=== PATIENT | male | born 1970 | race African-American/Black ===

== ENCOUNTER 2018-02-09 16:07 | Inpatient (IN) ==
[2018-02-09] MEDS ORDERED: Aluminum/Magnesium/Simethacone Susp 30 ML UDC PO PRN (18:54)
[2018-02-09] MEDS ORDERED: Bisacodyl 10 MG Supp RECTAL PRN (18:54)
[2018-02-09] MEDS ORDERED: Benzonatate 100 MG Capsule PO PRN (18:57)
[2018-02-09] MEDS: QUEtiapine 100 MG Tablet PO SCH (20:55)
[2018-02-09] MEDS: Senna/Docusate Sodium 8.6/50 MG Tablet PO SCH (20:55)
[2018-02-09] MEDS: Metoprolol Tartrate 25 MG Tablet PO SCH (20:56)
[2018-02-10 07:38] LABS: Calcium 8.3 mg/dL (8.5-10.1); Carbon Dioxide 30.9 meq/L (21.0-32.0); Potassium 3.9 meq/L (3.5-5.1)
[2018-02-10 07:41] LABS: Chol/HDL Ratio 2.36 Ratio; HDL Cholesterol 53.8 mg/dL (40.0-60.0)
[2018-02-10] MEDS: Aspirin 325 MG Tablet PO SCH (09:00)
[2018-02-10] MEDS: Senna/Docusate Sodium 8.6/50 MG Tablet PO SCH ×2 (09:00→21:37)
[2018-02-10] MEDS: amLODIPine 10 MG Tablet PO SCH (09:00)
[2018-02-10] MEDS: Sertraline 50 MG Tablet PO SCH (09:00)
[2018-02-10] MEDS: Metoprolol Tartrate 25 MG Tablet PO SCH ×2 (09:00→21:24)
[2018-02-10 09:31] LABS: Hemoglobin A1c 5.7 % (4.3-6.0)
--- NOTE | 2018-02-10 14:15 | P.HPPSY ---
Provisional Diagnosis Admission Date: February 09, 2018 17:30 Patient was transferred to the medical floor due to elevated blood pressure and has returned. There are no changes in his mental status beyond some slight improvement in his management of his feelings about responding to his hallucinatory demands of his son to kill the internet security specialist who he alleges was responsible for his . While on the medical floor the patient did not receive his psychotropic medication. Competence Certification of Person's Competence To Provide Express and Informed Consent I have personally examined Denzel Grullon, a person being served at [facility] on, February 10, 2018 1353. Express and informed consent means consent voluntarily given in writing, by a competent person, after sufficient explanation and disclosure of the subject matter involved to enable the person to make a knowing and willful decision without any element of force, fraud, deceit, duress, or other form of constraint or coercion. This person is 18 years of age or older, is not now known to be incompetent to consent to treatment with a guardian advocate, and does not have a health care surrogate or proxy currently making medical treatment decisions. I have found this person to be one of the following: [] Competent to provide express and informed consent, as defined above, for voluntary admission to this facility and is competent to provide express and informed consent for treatment. He/she has the consistent capacity to make well reasoned, willful, and knowing decisions concerning his or her medical or mental health treatment. The person fully and consistently understands the purpose of the admission for examination/placement and is fully capable of personally exercising all rights assured [place] [] Incompetent to provide express and informed consent to voluntary admission, and this is incompetent to provide express and informed consent to treatment. The person must be transferred to involuntary status and a petition for a guardian advocate filed with the Circuit Court. [] Refusing to provide express and informed consent to voluntary admission but is competent to provide express and informed consent for treatment. The person must be discharged or transferred to involuntary status. Form shall be completed within 24 hours of a person's arrival at the receiving facility and filed in the clinical record of each person: 1. Admitted on a voluntary basis 2. Permitted to provide express and informed consent to his/her own treatment 3. Allowed to transfer from involuntary to voluntary status 4. Prior to permitting a person to consent to his or her own treatment after having been previously found incompetent to consent to treatment. History of Present Illness Capacity: Has capacity Chief Complaint: Auditory and visual command hallucinations of instructions from his son to kill the internet security specialist responsible for his . History of Present Illness: February 10, 2018 Patient was on the medical floor for part of the day. Changes in his history beyond the hypertensive crisis that occurred that led to his being transferred to medicine. - Inpatient Certification I certify that the inpatient services were ordered in accordance with Medicare regulations governing the order. This includes certification that hospital inpatient services are reasonable and necessary and in the case of services not specified as inpatient-only under 42 CFR 419.22(n), that they are appropriately provided as inpatient services in accordance to with the 2-midnight benchmark under 43 CFR 412.3(e) I certify that inpatient psychiatric hospital services are medically necessary. Evaluation and treatment and/or diagnostic testing are expected to improve the patient's condition. The patient needs on a daily basis, active treatment furnished directly by or requiring the supervision of inpatient psychiatric facility personnel. Estimated Total Length of Stay (Days): 7 Plans for Post Hospital Care: Home Review of Systems February 10, 2018 patient complains of right flank pain which has been present on and off before hospitalization. Straight leg raising sign is positive for sciatic pain with elevation. PMFSH - History History Provided By: Patient - Medical History Medical History: Medical History (Last Updated 02/08/18 @ 17:31 by Mary Brown MD) Drug abuse HTN (hypertension) - Surgical History Surgical History: Surgical History (Last Updated 02/08/18 @ 17:31 by Mary Brown MD) No history of previous surgery - Family History Family History: Family History Mother Stroke - Tobacco History Second Hand Smoke Exposure: No Tobacco Use In Past 30 Days: No Smoking Status: Current every day smoker Tobacco Type: Cigarettes - Alcohol History How Often Do You Have a Drink Containing Alcohol: 2 to 4 times a month - Substance Use History Substance History: No History of Abuse Medications and Allergies Active Medications: Active Medications Hydrocodone Bitart/Acetaminophen ([place] 7.5/325) 1 tab PO Q6H PRN PRN Reason: PAIN SCALE 6-10 OR SEVERE SOB Al Hydrox/Mg Hydrox/Simethicone (Mag-Al Plus Susp Liq) 30 ml PO Q6H PRN PRN Reason: DYSPEPSIA Al Hydroxide/Mg Hydroxide (Milk Of Magnesia Liq) 30 ml PO Q12H PRN PRN Reason: Mild Constipation Amlodipine Besylate (Norvasc) 10 mg PO DAILY [facility] Last Admin: 02/10/18 09:00 Dose: 10 mg Aspirin (Aspirin) 325 mg PO DAILY [facility] Last Admin: 02/10/18 09:00 Dose: 325 mg Benzonatate (Tessalon Perles) 100 mg PO Q8H PRN PRN Reason: COUGH Bisacodyl (Dulcolax Supp) 10 mg RECTAL DAILY PRN PRN Reason: SEVERE CONSITIPATION Hydroxyzine HCl (Atarax) 25 mg PO Q6H PRN PRN Reason: ANXIETY Last Admin: 02/09/18 20:55 Dose: 25 mg Lactulose (Lactulose Liq) 30 ml PO DAILY PRN PRN Reason: SEVERE CONSITIPATION Metoprolol Tartrate (Lopressor) 25 mg PO BID [facility] Last Admin: 02/10/18 09:00 Dose: 25 mg Quetiapine Fumarate (Seroquel) 100 mg PO [facility] Last Admin: 02/09/18 20:55 Dose: 100 mg Senna/Docusate Sodium (Danielle-Colace) 1 tab PO BID [facility] Last Admin: 02/10/18 09:00 Dose: 1 tab Sennosides (Senokot) 17.2 mg PO Q12H PRN PRN Reason: Moderate Constipation Sertraline HCl (Zoloft) 50 mg PO DAILY [facility] Last Admin: 02/10/18 09:00 Dose: 50 mg Allergies Allergy/AdvReac Type Severity Reaction Status Date / Time No Known Allergies Allergy Verified 02/05/18 08:58 Results - Labs CBC & Chem 7: 02/10/18 06:02 Labs: Laboratory Results - last 24 hr 02/10/18 02/10/18 06:02 06:02 Sodium 138 Potassium 3.9 Chloride 103 Carbon Dioxide 30.9 Anion Gap 4 L BUN 23 H Creatinine 1.72 H Estimated GFR 52 L Random Glucose 79 Hemoglobin A1c 5.7 Calcium 8.3 L Triglycerides 57 Cholesterol 127 LDL Cholesterol, Calc 62 HDL Cholesterol 53.8 Cholesterol/HDL Ratio 2.36 Exam Vital signs: Vital Signs 02/09/18 18:28 02/10/18 05:32 Temperature 98.7 F 98.1 F Pulse Rate 54 L 51 L Respiratory Rate 18 17 Blood Pressure 151/95 H 116/74 Pulse Oximetry 98 95 Intake & Output 02/09/18 02/10/18 02/10/18 18:59 06:59 18:59 Weight 83.9 kg 77.5 kg Other: Weight On Admission 83.9 kg Mental Status Examination Appearance: Appropriate Consciousness: Alert Orientation: x4 Motor Activity: Normal gait (Slight limp breathing the right leg) Speech: Unremarkable Language: Adequate Fund of Knowledge: Adequate Attention and Concentration: Adequate Memory: Unremarkable Mood: Sad Affect: Blunt Thought Process & Associations: Intact Thought Content: Hallucinations Hallucination Type: Auditory, Visual Delusion Type: Paranoid Homicidal Ideation: Yes Homicidal Plan: Yes Homicidal Intention: Yes Insight: Fair Judgment: Impulsive Assessment and Plan - Plan Plan: Estimated LOS: [] days February 10, 2018 patient will be restarted on his medications that were discontinued on transfer to the medical floor. Justification for Continued Inpatient Stay: February 10, 2018 Patient remains homicidal
[2018-02-10] MEDS: QUEtiapine 100 MG Tablet PO SCH (21:24)
--- NOTE | 2018-02-11 09:18 | P.PNPSY ---
Subjective Chief Complaint: Auditory and visual command hallucinations of instructions from his son to kill the detailer furniture responsible for his . Remarks: February 11, 2018 Subjective: The patient to return for medicine had to be readmitted and accordingly the medications the patient was taking were discontinued. As a result the patient reports that the hallucinations are worse at present. We discussed the need for additional neuroleptic medication risperidone and the patient did sign a consent. Record was reviewed and patient discussed with nursing staff. Review of Systems February 11, 2018 Yesterday patient was complaining of back pain and even endorse pain with straight leg raising sign. Today there does not seem to be anything resembling favoring the right side in his gait. The patient did not mention back pain today. Mental Status Examination Appearance: Appropriate Consciousness: Alert Orientation: x4 Motor Activity: Normal gait (Slight limp breathing the right leg) Speech: Unremarkable Language: Adequate Fund of Knowledge: Adequate Attention and Concentration: Adequate Memory: Unremarkable Mood: Sad Affect: Blunt Thought Process & Associations: Intact Thought Content: Hallucinations Hallucination Type: Auditory, Visual Delusion Type: Paranoid Homicidal Ideation: Yes Homicidal Plan: Yes Homicidal Intention: Yes Insight: Fair Judgment: Impulsive Assessment and Plan - Plan Plan: Estimated LOS: [] days February 10, 2018 patient will be restarted on his medications that were discontinued on transfer to the medical floor. February 11, 2018 patient will be started on Seroquel 200 mg at at bedtime and initiate risperidone 1 mg twice daily patient signed consent in my presence. Nursing staff notes that patient did have his 100 mg of p.m. and not helpful according to the patient. Also there is need for medical follow-up since the patient has been started on a beta-dipti and there has been recorded a pulse rate of 50. Justification for Continued Inpatient Stay: February 11, 2018 Due to protocol the patient's psychotropic medications were not continued on the medical floor. He reports worsening of his symptoms. Yesterday, he was given his at bedtime dose of 100 mg of Seroquel at at bedtime. That will be increased to 200 mg. Patient is also been started on a beta-dipti and showed a bradycardia of 50 today. Patient and I discussed the need for additional psychotropic medication for help improving his paranoid ideas and hallucinations. He will be started on risperidone 1 mg twice daily. Given the number of medication changes quired and lack of response and the patient's homicidal intent and plan it would not be advisable at this point to discharge the patient to a lower level of care. The patient generally wants help, but help means giving up the hallucinated image and voice of his son.
[2018-02-11] MEDS: Senna/Docusate Sodium 8.6/50 MG Tablet PO SCH ×2 (09:37→20:29)
[2018-02-11] MEDS: Metoprolol Tartrate 25 MG Tablet PO SCH ×2 (09:37→20:30)
[2018-02-11] MEDS: Aspirin 325 MG Tablet PO SCH (09:38)
[2018-02-11] MEDS: Sertraline 50 MG Tablet PO SCH (09:38)
[2018-02-11] MEDS: amLODIPine 10 MG Tablet PO SCH (09:38)
--- NOTE | 2018-02-11 15:34 | P.CON ---
History of Present Illness Service: [facility] Consult date: 02/11/18 Requesting Physician: Esdras Figueroa Reason for Consult: HTN, bradycardia Primary Care Provider: UNKNOWN Chief Complaint: Hallucinations History of Present Illness: 47-year-old male with history of hypertension admitted to inpatient psychiatry for auditory and visual command hallucinations. Hospitalist consulted for medical management of hypertension and bradycardia. The patient is seen lying in bed, awake, alert, oriented x4. He reports a mild global headache which he describes as intermittent and achy. Denies photophobia, lightheadedness, nausea /vomiting, chest pain, shortness of breath. He reports only a past medical history of hypertension. He states he was previously on lisinopril prior to recent admission. He denies any other medical history. Denies any other medical complaints at this time. Review of Systems All other systems reviewed negative except as stated in [facility] - History History Provided By: Patient - Medical History Medical History: Medical History (Last Reviewed 02/11/18 @ 15:20 by Elizabeth Livingston) Drug abuse HTN (hypertension) - Surgical History Surgical History: Surgical History (Last Reviewed 02/11/18 @ 15:21 by Elizabeth Livingston) No history of previous surgery - Family History Family History: Family History (Last Updated 02/11/18 @ 15:20 by Elizabeth Livingston) Mother Stroke Father Pacemaker - Social History I have reviewed the patient's Social History: Yes - Tobacco History Second Hand Smoke Exposure: No Tobacco Use In Past 30 Days: No Smoking Status: Current every day smoker Tobacco Type: Cigarettes Cigarettes Per Day: 4 - Alcohol History How Often Do You Have a Drink Containing Alcohol: 2 to 3 times a week - Substance Use History Substance History: Active Abuse - Substance Use Type Marijuana Route Used: Inhalation Medications and Allergies Active Medications: Active Medications Hydrocodone Bitart/Acetaminophen ([place] 7.5/325) 1 tab PO Q6H PRN PRN Reason: PAIN SCALE 6-10 OR SEVERE SOB Al Hydrox/Mg Hydrox/Simethicone (Mag-Al Plus Susp Liq) 30 ml PO Q6H PRN PRN Reason: DYSPEPSIA Al Hydroxide/Mg Hydroxide (Milk Of Magnesia Liq) 30 ml PO Q12H PRN PRN Reason: Mild Constipation Amlodipine Besylate (Norvasc) 10 mg PO DAILY [facility] Last Admin: 02/11/18 09:38 Dose: 10 mg Aspirin (Aspirin) 325 mg PO DAILY [facility] Last Admin: 02/11/18 09:38 Dose: 325 mg Benzonatate (Tessalon Perles) 100 mg PO Q8H PRN PRN Reason: COUGH Bisacodyl (Dulcolax Supp) 10 mg RECTAL DAILY PRN PRN Reason: SEVERE CONSITIPATION Hydroxyzine HCl (Atarax) 25 mg PO Q6H PRN PRN Reason: ANXIETY Last Admin: 02/10/18 21:24 Dose: 25 mg Lactulose (Lactulose Liq) 30 ml PO DAILY PRN PRN Reason: SEVERE CONSITIPATION Metoprolol Tartrate (Lopressor) 25 mg PO BID [facility] Last Admin: 02/11/18 09:37 Dose: 25 mg Nicotine (Habitrol 21 Mg Patch.24 Hr) 1 patch T-DERMAL DAILY [facility] Last Admin: 02/11/18 11:00 Dose: 1 patch Patch Removal (Remove Old Patch) 1 each T-DERMAL DAILY [facility] Quetiapine Fumarate (Seroquel) 100 mg PO HS [facility] Last Admin: 02/10/18 21:24 Dose: 100 mg Quetiapine Fumarate (Seroquel) 200 mg PO DAILY [facility] Last Admin: 02/11/18 09:37 Dose: 200 mg Risperidone (Risperdal) 1 mg PO BID [facility] Last Admin: 02/11/18 09:38 Dose: 1 mg Senna/Docusate Sodium (Danielle-Colace) 1 tab PO BID [facility] Last Admin: 02/11/18 09:37 Dose: Not Given Sennosides (Senokot) 17.2 mg PO Q12H PRN PRN Reason: Moderate Constipation Sertraline HCl (Zoloft) 50 mg PO DAILY [facility] Last Admin: 02/11/18 09:38 Dose: 50 mg Allergies Allergy/AdvReac Type Severity Reaction Status Date / Time No Known Allergies Allergy Verified 02/05/18 08:58 Physical Exam Vital signs: Vital Signs 02/11/18 05:23 02/11/18 09:36 Temperature 98.6 F Pulse Rate 53 L 61 Respiratory Rate 16 16 Blood Pressure 142/53 H 148/88 H Pulse Oximetry 97 96 Intake & Output 02/10/18 02/11/18 02/11/18 18:59 06:59 18:59 Intake Total 480 / 480 Balance 480 / 480 Intake: Oral 480 / 480 Narrative: GENERAL: Well-nourished, well-developed middle-age male patient in NAD. SKIN: Warm and dry. No rash. HEENT: Normocephalic. Atraumatic. Pupils equal and round. Mucous membranes pink and moist. NECK: Supple. Trachea midline. CARDIOVASCULAR: Regular rate and rhythm. No murmur appreciated. RESPIRATORY: No accessory muscle use. Clear to auscultation. Breath sounds equal bilaterally. GASTROINTESTINAL: Abdomen soft, non-tender, nondistended. Normoactive bowel sounds x4. MUSCULOSKELETAL: No obvious deformities. Extremities without clubbing, cyanosis , or edema. NEUROLOGICAL: Awake and alert. No obvious cranial nerve deficits. Motor grossly within normal limits. Moving all extremities spontaneously. Normal speech. Results - Labs CBC & Chem 7: 02/10/18 06:02 Assessment and Plan - Plan 47-year-old male with history of hypertension admitted to inpatient psychiatry for auditory and visual command hallucinations. Hospitalist consulted for medical management of hypertension and bradycardia. Hallucinations: Acute -Continue management per psychiatry -Currently on seroquel, risperdal, zoloft Hypertension: Patient was admitted to ICU on previous admission requiring nifedipine drip -BP now fairly well controlled on Norvasc 10 mg daily and metoprolol 25 mg bid -Hydralazine prn SBP > 180, DBP > 100 -Monitor BP, adjust antihypertensives as needed Bradycardia: Patient has had heart rate in the 50s throughout the entire previous admission, asymptomatic -Continue metoprolol with hold parameters for heart rate less than 50 -EKG from 02/09/18 reviewed, showed sinus bradycardia, heart rate 54 -Continue to monitor DVT prophylaxis: Patient is ambulatory Discharge Planning: Will monitor BP and HR over next few days, and if stable, hospitalists will sign off.
[2018-02-11] MEDS ORDERED: hydrALAZINE 25 MG Tablet PO PRN (15:37)
[2018-02-11] MEDS: QUEtiapine 100 MG Tablet PO SCH (20:30)
[2018-02-12] MEDS: Metoprolol Tartrate 25 MG Tablet PO SCH ×2 (08:25→21:19)
[2018-02-12] MEDS: Senna/Docusate Sodium 8.6/50 MG Tablet PO SCH ×2 (08:25→21:19)
[2018-02-12] MEDS: Aspirin 325 MG Tablet PO SCH (08:25)
[2018-02-12] MEDS: Sertraline 50 MG Tablet PO SCH (08:25)
[2018-02-12] MEDS: amLODIPine 10 MG Tablet PO SCH (08:25)
--- NOTE | 2018-02-12 12:06 | P.PN ---
Subjective Interval history: Follow up for hypertension, bradycardia. The patient reports feeling well today. He states his headaches are improving. Denies any visual changes, photophobia, nausea/vomiting, chest pain, palpitations, or shortness of breath. BP improving. He is requesting prescriptions for his BP meds upon discharge. Physical Exam Vital signs: Vital Signs 02/11/18 16:52 02/12/18 05:42 Temperature 98.3 F 98.1 F Pulse Rate 63 59 L Respiratory Rate 16 16 Blood Pressure 124/83 Pulse Oximetry 95 99 Intake & Output 02/11/18 02/12/18 02/12/18 18:59 06:59 18:59 Intake Total 480 / 480 720 / 720 Balance 480 / 480 720 / 720 Intake: Oral 480 / 480 720 / 720 Narrative: GENERAL: Well-nourished, well-developed middle-age male patient in [facility]. SKIN: Warm and dry. No rash. HEENT: Normocephalic. Atraumatic. Pupils equal and round. Mucous membranes pink and moist. CARDIOVASCULAR: Regular rate and rhythm. No murmur appreciated. RESPIRATORY: No accessory muscle use. Clear to auscultation. Breath sounds equal bilaterally. GASTROINTESTINAL: Abdomen soft, non-tender, nondistended. Normoactive bowel sounds x4. MUSCULOSKELETAL: No obvious deformities. Extremities without clubbing, cyanosis , or edema. NEUROLOGICAL: Awake and alert. No obvious cranial nerve deficits. Motor grossly within normal limits. Moving all extremities spontaneously. Normal speech. Results - Labs CBC & Chem 7: 02/10/18 06:02 Assessment and Plan - Plan 47-year-old male with history of hypertension admitted to inpatient psychiatry for auditory and visual command hallucinations. Hospitalist consulted for medical management of hypertension and bradycardia. Hallucinations: Acute -Continue management per psychiatry -Currently on seroquel, risperdal, zoloft Hypertension: Patient was admitted to ICU on previous admission s/p nifedipine drip -BP now fairly well controlled on Norvasc 10 mg daily and metoprolol 25 mg bid -Hydralazine prn SBP > 180, DBP > 100 -Monitor BP, adjust antihypertensives as needed Bradycardia: Patient has had heart rate in the 50s throughout the entire previous admission, asymptomatic -Continue metoprolol with hold parameters for heart rate less than 50 -EKG from 02/09/18 reviewed, showed sinus bradycardia, heart rate 54 -Continue to monitor, HR stable in 50-60s. DVT prophylaxis: Patient is ambulatory Discharge Planning: Will monitor BP and HR over next few days, and if stable, hospitalists will sign off.
--- NOTE | 2018-02-12 13:42 | P.PNPSY ---
Subjective Chief Complaint: Auditory and visual command hallucinations of instructions from his son to kill the optical design engineer responsible for his . Remarks: Patient was seen and case discussed with nursing. Patient continues to be angry about the of his son. However, he no longer has any intent of hurting this security police officer. However, he remains bothered by auditory hallucinations and visual hallucinations of his son telling him that there is a gun buried in the backyard that he should use to kill a security police officer. Patient says he would not do that because he has a 6-year-old daughter he needs to take care of. He continues to have nightmares during the day. Compliant with his medications. Behaving well on the unit Review of Systems All other systems reviewed negative except as stated in HPI Mental Status Examination Appearance: Appropriate Consciousness: Alert Orientation: x4 Motor Activity: Normal gait (Slight limp breathing the right leg) Speech: Unremarkable Language: Adequate Fund of Knowledge: Adequate Attention and Concentration: Adequate Memory: Unremarkable Mood: Sad Affect: Blunt Thought Process & Associations: Intact Thought Content: Hallucinations Hallucination Type: Auditory, Visual Delusion Type: Paranoid Homicidal Ideation: Yes Homicidal Plan: Yes Homicidal Intention: No Insight: Fair Judgment: Impulsive Assessment and Plan - Plan Plan: Continue current treatment plan Justification for Continued Inpatient Stay: Patient would decompensate in a less restrictive setting
[2018-02-12] MEDS: QUEtiapine 100 MG Tablet PO SCH (21:19)
[2018-02-13] MEDS: Sertraline 50 MG Tablet PO SCH (09:15)
[2018-02-13] MEDS: Senna/Docusate Sodium 8.6/50 MG Tablet PO SCH ×3 (09:16→21:11)
[2018-02-13] MEDS: Metoprolol Tartrate 25 MG Tablet PO SCH ×2 (09:16→21:11)
[2018-02-13] MEDS: amLODIPine 10 MG Tablet PO SCH (09:16)
[2018-02-13] MEDS: Aspirin 325 MG Tablet PO SCH (09:16)
--- NOTE | 2018-02-13 10:12 | P.PN ---
Subjective Interval history: Follow-up for hypertension, bradycardia. The patient has no medical complaints today. Headaches improving. Ambulating without difficulty. Tolerating oral intake. BP much improved, currently 126/58. Physical Exam Vital signs: Vital Signs 02/12/18 17:40 02/13/18 05:18 Temperature 97.9 F 97.8 F Pulse Rate 89 59 L Respiratory Rate 18 18 Blood Pressure 159/96 H 126/58 L Pulse Oximetry 95 99 Intake & Output 02/12/18 02/13/18 02/13/18 18:59 06:59 18:59 Intake Total 1080 / 1080 Balance 1080 / 1080 Intake: Oral 1080 / 1080 Narrative: GENERAL: Well-nourished, well-developed middle-age male patient in NAD. SKIN: Warm and dry. No rash. HEENT: Normocephalic. Atraumatic. Pupils equal and round. Mucous membranes pink and moist. CARDIOVASCULAR: Regular rate and rhythm. No murmur appreciated. RESPIRATORY: No accessory muscle use. Clear to auscultation. Breath sounds equal bilaterally. GASTROINTESTINAL: Abdomen soft, non-tender, nondistended. Normoactive bowel sounds x4. MUSCULOSKELETAL: No obvious deformities. Extremities without clubbing, cyanosis , or edema. NEUROLOGICAL: Awake and alert. No obvious cranial nerve deficits. Motor grossly within normal limits. Moving all extremities spontaneously. Normal speech. Results - Labs CBC & Chem 7: 02/10/18 06:02 Assessment and Plan - Plan 47-year-old male with history of hypertension admitted to inpatient psychiatry for auditory and visual command hallucinations. Hospitalist consulted for medical management of hypertension and bradycardia. Hallucinations: Acute -Continue management per psychiatry -Currently on seroquel, risperdal, zoloft Hypertension: Patient was admitted to ICU on previous admission s/p nifedipine drip -BP now fairly well controlled on Norvasc 10 mg daily and metoprolol 25 mg bid -Hydralazine prn SBP > 180, DBP > 100 -Monitor BP, adjust antihypertensives as needed -BP stable Bradycardia: Patient has had heart rate in the 50s throughout the entire previous admission, asymptomatic -Continue metoprolol with hold parameters for heart rate less than 50 -EKG from 02/09/18 reviewed, showed sinus bradycardia, heart rate 54 -HR stable in 50-60s. DVT prophylaxis: Patient is ambulatory Discharge Planning: The patient is medically stable at this time. Hospitalists will sign off. Continue current medication regimen. Prescriptions sent to the patient's pharmacy. Please reconsult hospitalist as needed or if any new issues arise. Thank you very much for this consultation.
--- NOTE | 2018-02-13 18:14 | P.PNPSY ---
Subjective Chief Complaint: Auditory and visual command hallucinations of instructions from his son to kill the coffee taster responsible for his . Remarks: Reviewed electronic medical records and discussed case with staff. Follow-up was conducted in the patient's room with JOAN Copeland present. There is reports she has been visible but seclusive to self. Patient's found sleeping soundly no apparent distress in his room. He wakes to verbal stimuli. States that he is feeling alright and sleeping "pretty good" he goes on to state that he is still experiencing auditory and visual hallucinations a little bit just when he is awake. He claims that he sees his son walking around and that his son sits in the chair next to his bed visits him. He reports that these hallucinations started in August. He does state that the medication seems to be making his dreams better. Claims that his appetite's been good and the only side effect from his medication is a little bit of dry mouth. Mental Status Examination Appearance: Appropriate Consciousness: Alert Orientation: x4 Motor Activity: Normal gait (Slight limp breathing the right leg) Speech: Unremarkable Language: Adequate Fund of Knowledge: Adequate Attention and Concentration: Adequate Memory: Unremarkable Mood: Sad Affect: Blunt Thought Process & Associations: Intact Thought Content: Hallucinations Hallucination Type: Auditory, Visual Delusion Type: Paranoid Homicidal Ideation: Yes Homicidal Plan: Yes Homicidal Intention: No Insight: Fair Judgment: Impulsive Assessment and Plan - Assessment (1) Unspecified psychosis Code(s): F29 - Unspecified psychosis not due to a substance or known physiological condition Status: Acute - Plan Plan: Patient will be reevaluated by the attending psychiatrist. Continue with current treatment plan. Justification for Continued Inpatient Stay: Moving this patient to a less restrictive environment would likely result in decompensation.
[2018-02-13] MEDS: QUEtiapine 100 MG Tablet PO SCH (21:11)
[2018-02-14 05:26] VITALS: O2SAT 98
[2018-02-14] MEDS: Sertraline 50 MG Tablet PO SCH (08:30)
[2018-02-14] MEDS: amLODIPine 10 MG Tablet PO SCH (08:30)
[2018-02-14] MEDS: Metoprolol Tartrate 25 MG Tablet PO SCH ×2 (08:30→09:11)
[2018-02-14] MEDS: Senna/Docusate Sodium 8.6/50 MG Tablet PO SCH (08:30)
[2018-02-14] MEDS: Aspirin 325 MG Tablet PO SCH (08:31)
[2018-02-14 09:06] VITALS: BP 131/83; PULSE 75; RESP 18; TEMP 98.3
--- NOTE | 2018-02-14 13:31 | P.DSPSY ---
Psychiatry Discharge Summary Inpatient Psychiatric care?: Yes Advance Directives: No Mental Health Advance Directive: No Health Care Proxy: No - Admission Admission Date: February 09, 2018 17:30 Brief History: February 10, 2018 Patient was on the medical floor for part of the day. Changes in his history beyond the hypertensive crisis that occurred that led to his being transferred to medicine. Tobacco Use In Past 30 Days: No How Often Do You Have a Drink Containing Alcohol: 2 to 3 times a week Hospital Course: February 14, 2018 Course in the hospital: Patient has had a rather eventful course in the hospital with an episode of bradycardia and hypertension that required his transfer to the medical floor briefly. Since his return and placement on antihypertensive medications the patient is done well. His review of systems at the present time shows decrease in his headaches and well-managed blood pressure; other vitals are stable. The patient's chief complaint of not wanting to listen to the command hallucinations from his son who find the gold leaf layer who killed him and kill the gold leaf layer has diminished in terms of his anger and wished to carry out the commands. Patient's reason for coming to the hospital was to seek help for managing the hallucinations. The hallucinations continue and certainly represent unresolved grief, but hopefully the patient's ambivalence about giving up the hallucinations have trended towards listening but not fearing that he will carry out the commands to kill. Duty to warn has been executed by social worker masters. Since the delusions are unlikely to improve it is recommended that the patient be closely followed as an outpatient and that every effort be made to guarantee patient does not have access to the means to carry out his son's commands. - Discharge Discharge Date: 02/14/18 Discharge Disposition: Home - Discharge Instructions Discharge Diet: Regular Diet - Discharge Time > 30 minutes Mental Status Examination Appearance: Appropriate Consciousness: Alert Orientation: x4 Motor Activity: Normal gait (Slight limp breathing the right leg) Speech: Unremarkable Language: Adequate Fund of Knowledge: Adequate Attention and Concentration: Adequate Memory: Unremarkable Mood: Sad Affect: Blunt Thought Process & Associations: Intact Thought Content: Hallucinations Hallucination Type: Auditory, Visual Delusion Type: Paranoid Homicidal Ideation: Yes Homicidal Plan: Yes Homicidal Intention: No Insight: Adequate Judgment: Adequate (Patient has demonstrated good judgment as regards treatment the necessity for treatment.) Discharge/Advance Care Plan - Results Vital Signs: Last Vital Signs Temp 98.3 F 02/14/18 09:05 Pulse 75 02/14/18 09:05 Resp 18 02/14/18 09:05 BP 131/83 02/14/18 09:05 Pulse Ox 98 02/14/18 09:05 Lab Results: Laboratory Results Hemoglobin A1c 5.7 % (4.3-6.0) 02/10/18 06:02 Triglycerides 57 mg/dL (42-150) 02/10/18 06:02 Cholesterol 127 mg/dL (120-200) 02/10/18 06:02 LDL Cholesterol, Calc 62 mg/dL (0-99) 02/10/18 06:02 HDL Cholesterol 53.8 mg/dL (40.0-60.0) 02/10/18 06:02 Summary of Procedures: None Pending Results: None - Medications Number of antipsychotic medications at discharge: 2 - Discharge Care Plan Goals to Promote Your Health: * To prevent worsening of your condition and complications * To maintain your health at the optimal level Directions to Meet Your Goals: Take your medications as prescribed Follow your dietary instruction Follow activity as directed Keep your appointments as scheduled Take your immunizations and boosters as scheduled If your symptoms worsen call your PCP, if no PCP go to Urgent Care Center or Emergency Room For 31/08 questions related to your inpatient stay or results of tests pending at discharge, please contact Dr. Esdras Figueroa MD at Smoking is Dangerous to Your Health. Avoid second hand smoking
== END 2018-02-14 17:10 | disposition home or self-care (01) | DRG 885 ==
LOC: H260 17:30
PROVIDERS: ADMIT Psychiatry & Neurology Child & Adolescent Psychiatry; ATTEND Psychiatry & Neurology Child & Adolescent Psychiatry